=== PATIENT | male | born 1955 | race African-American/Black ===

== ENCOUNTER 2017-06-19 12:30 | Inpatient (IN) | payer MEDICAID, OTHER ==
[~2017-06-19] VITALS: Ht 185.4 cm; Wt 98.9 kg
[~2017-06-19 12:30] MED LIST: ASPI-1159 PO; ATOR80TA PO
[2017-06-19 20:00] LABS: BASOPHILS % 0.4 % (0.0-2.0); EOSINOPHILS % 1.7 % (0.0-5.0); HEMATOCRIT. 41.2 % (42.0-52.0); HEMOGLOBIN. 13.7 g/dL (14.0-18.0); LYMPHOCYTES % 14.8 % (20.0-50.0); MEAN CORPUSCULAR HEMOGLOBIN 30.2 pg (28.0-32.0); MEAN CORPUSCULAR VOLUME 90.6 fL (80.0-94.0); MEAN PLATELET VOLUME 8.4 fl (7.4-10.4); MONOCYTES % 9.1 % (2.0-8.0); PLATELET 257 x1000/uL (130-400); RED BLOOD CELL COUNT 4.54 mill/uL (4.7-6.1); RED CELL DISTRIBUTION WIDTH 13.9 % (11.6-14.6)
[2017-06-19 20:06] LABS: PROTHROMBIN TIME 10.8 sec (9.4-11.6)
[2017-06-19 20:15] LABS: CHLORIDE 108 mEq/L (98-107)
[2017-06-19] MEDS ORDERED: SODIUM CHLORIDE 0.9% 1,000 ML IV ONE (20:15)
[2017-06-19] MEDS ORDERED: CLINDAMYCIN 900 MG in DEXTROSE 5% WATER 50 ML IV ONE (20:15)
[2017-06-19] MEDS ORDERED: MORPHINE SULFATE 4 MG/ML CPJ (NOT FOR IM USE) IV ONE (20:15)
[2017-06-19] MEDS ORDERED: ENOXAPARIN 40MG/0.4ML SYR SUBCUT SCH (23:45)
[2017-06-19] MEDS ORDERED: ACETAMINOPHEN 325MG TABLET PO PRN (23:45)
[2017-06-19] MEDS ORDERED: MAGNESIUM/ALUMINUM HYDROXIDE/SIMETHICONE 30ML UDC PO PRN ×2 (23:45)
[2017-06-19] MEDS ORDERED: IPRATROPIUM/ALBUTEROL 0.5-3(2.5)MG/3ML NEB INH PRN (23:45)
[2017-06-19] MEDS ORDERED: DOCUSATE SODIUM 100MG CAPSULE PO PRN ×2 (23:45)
[2017-06-19] MEDS ORDERED: CLONIDINE 0.1MG TABLET PO PRN (23:45)
[2017-06-19] MEDS ORDERED: HYDROCODONE/ACETAMINOPHEN 5/325MG TABLET PO PRN (23:45)
[2017-06-19] MEDS ORDERED: ONDANSETRON HCL 4MG/2ML VIAL IV PRN (23:45)
[2017-06-20] VITALS (8 sets, daily range): BP systolic 96–129; BP diastolic 53–71
[2017-06-20 00:47] LABS: CHLORIDE 110 mEq/L (98-107)
[2017-06-20] MEDS ORDERED: VANCOMYCIN 1 G PREMIX 200 ML IV SCH ×2 (03:00→10:00)
[2017-06-20] MEDS ORDERED: IPRATROPIUM/ALBUTEROL 0.5-3(2.5)MG/3ML NEB INH PRN (03:45)
[2017-06-20] MEDS ORDERED: HYDROCODONE/ACETAMINOPHEN 5/325MG TABLET PO PRN (03:45)
[2017-06-20] MEDS ORDERED: ATOR-2 PO (03:50)
[2017-06-20] MEDS ORDERED: CLONIDINE 0.1MG TABLET PO PRN (05:45)
[2017-06-20] MEDS ORDERED: ONDANSETRON HCL 4MG/2ML VIAL IV PRN (05:45)
[2017-06-20] MEDS ORDERED: ACETAMINOPHEN 325MG TABLET PO PRN (05:45)
[2017-06-20] MEDS ORDERED: MEDICATION NOT ON FORMULARY EA (Atorvastatin Calcium 1 TAB) PO SCH (09:00)
[2017-06-20] MEDS ORDERED: ASPIRIN 81MG EC TABLET PO SCH (09:00)
[2017-06-20] MEDS ORDERED: ATORVASTATIN CALCIUM PO SCH (09:00)
[2017-06-20] MEDS ORDERED: ENOXAPARIN 40MG/0.4ML SYR SUBCUT SCH (09:00)
[2017-06-20] MEDS ORDERED: INFLUENZA VIRUS VACCINE 0.5ML SYR IM ONE (12:00)
[2017-06-20] MEDS ORDERED: PNEUMOCOCCAL 23-VAL P-SAC VAC 0.5 ML IM ONE (12:00)
[2017-06-20] MEDS ORDERED: ATORVASTATIN CALCIUM 40MG TABLET PO SCH (21:00)
== END 2017-06-20 16:20 | disposition short-term general hospital (02) | DRG 383 ==
LOC: ER 13:53 → 6EST 22:24 → EDBEDREQTM 22:25 → EDBEDREQ 22:25 → EDBEDREQSVC 22:25 → ENRESERV 22:58 → ER 23:40
PROVIDERS: ADMIT Internal Medicine; ATTEND Internal Medicine
DX: L03.116 Cellulitis of left lower limb (principal); E43 Unspecified severe protein-calorie malnutrition; E87.8 Other disorders of electrolyte and fluid balance, not elsewhere classified; I10 Essential (primary) hypertension; L03.115 Cellulitis of right lower limb; I25.10 Atherosclerotic heart disease of native coronary artery without angina pectoris; E78.5 Hyperlipidemia, unspecified; E78.00 Pure hypercholesterolemia, unspecified; D64.9 Anemia, unspecified; F17.210 Nicotine dependence, cigarettes, uncomplicated; Z59.0 Homelessness; Z88.0 Allergy status to penicillin; Z79.899 Other long term (current) drug therapy; Z79.82 Long term (current) use of aspirin; I25.2 Old myocardial infarction; E83.51 Hypocalcemia
CPT/HCPCS: 36415; 73590; 73630; 80048; 80053; 83605; 85025; 85610; 87040; 87070; 87077; 87186; 87205; 96361; 96365; 96375; 99285; J1650; J2270; J3370; J3490; J7030; J7040; J7060

== ENCOUNTER 2019-03-10 02:33 | Emergency (ER) | payer OTHER ==
[~2019-03-10] VITALS: Ht 188 cm; Wt 81.8 kg
[~2019-03-10 02:33] MED LIST changes: -ASPI-1159 PO; +ASPI-1393 PO; +ATOR-2 PO; -ATOR80TA PO
[2019-03-10] MEDS ORDERED: CLINDAMYCIN PHOSPHATE 600MG/4ML VIAL IM ONE (08:30)
[2019-03-10 10:13] VITALS: BP 97/56
== END 2019-03-10 10:11 | disposition home or self-care (01) ==
LOC: ER 02:33
DX: K13.0 Diseases of lips (principal); I11.9 Hypertensive heart disease without heart failure; E78.5 Hyperlipidemia, unspecified; E78.00 Pure hypercholesterolemia, unspecified; I25.2 Old myocardial infarction; Z79.82 Long term (current) use of aspirin; Z88.0 Allergy status to penicillin
CPT/HCPCS: 87070; 87077; 87205; 96372; 99283; J3490

== ENCOUNTER 2022-03-11 00:29 | Emergency (ER) | payer MEDICARE, OTHER ==
[~2022-03-11] VITALS: Ht 188 cm; Wt 80.0 kg
[~2022-03-11 00:29] MED LIST changes: -ASPI-1393 PO; +ASPI-1497 PO
[2022-03-11] MEDS ORDERED: BO1 TP (05:33)
[2022-03-11] MEDS ORDERED: IBUP-2029 MT (05:33)
[2022-03-11] MEDS ORDERED: IBUPROFEN 600MG TABLET PO ONE (05:45)
[2022-03-11 05:55] VITALS: BP 135/76
== END 2022-03-11 05:55 | disposition home or self-care (01) ==
LOC: ER 00:41
DX: S90.861A Insect bite (nonvenomous), right foot, initial encounter (principal); I10 Essential (primary) hypertension; Z88.0 Allergy status to penicillin; Z98.890 Other specified postprocedural states; W57.XXXA Bitten or stung by nonvenomous insect and other nonvenomous arthropods, initial encounter; Y93.89 Activity, other specified; Y92.89 Other specified places as the place of occurrence of the external cause; Y99.8 Other external cause status
CPT/HCPCS: 99283